=== PATIENT | female | born 1965 | race Caucasian/White ===

== ENCOUNTER 2018-05-19 06:11 | Day surgery (SDC) | END 2018-05-19 06:12 | disposition home or self-care (01) | CPT/HCPCS: 45378; J7120 ==

== ENCOUNTER 2021-10-23 15:17 | Observation (INO) | payer OTHER ==
[2021-10-23 15:35] LABS: BASOPHILS % (AUTO) 0.6 %; EOSINOPHILS # (AUTO) 0.1 10^3/uL (0.0-0.7); HGB - HEMOGLOBIN 13.9 g/dL (12.0-16.0); LYMPHOCYTES # (AUTO) 2.5 10^3/uL (1.5-3.5); LYMPHOCYTES % (AUTO) 35.1 %; MEAN CORPUSCULAR HEMOGLOBIN 29.4 pg (27.0-31.0); MEAN CORPUSCULAR HGB CONC 33.1 g/dL (32.0-36.0); MONOCYTES # (AUTO) 0.6 10^3/uL (0.0-1.0); MONOCYTES % (AUTO) 8.3 %; NEUTROPHILS # (AUTO) 3.7 10^3/uL (1.5-6.6); NEUTROPHILS % (AUTO) 53.6 %; PLT - PLATELET COUNT 284 10^3/uL (130-450); RED BLOOD COUNT 4.72 10^6/uL (4.20-5.40); RED CELL DISTRIBUTION WIDTH 12.3 % (12.0-15.0)
[2021-10-23] MEDS ORDERED: ONDANSETRON 4 MG/2 ML VIAL IVP STA (15:37)
[2021-10-23] MEDS ORDERED: PANTOPRAZOLE 40 MG VIAL IVP STA (15:37)
[2021-10-23] MEDS ORDERED: SUCRALFATE 1 GM/10 ML UDC PO STA (15:37)
[2021-10-23] MEDS ORDERED: HYDROmorphone 1 MG/ML CARPUJECT IVP STA ×2 (15:37→17:25)
[2021-10-23 15:48] LABS: ALBUMIN 4.9 g/dL (3.2-5.5); ALBUMIN/GLOBULIN RATIO 1.4 (1.0-2.2); BILIRUBIN,TOTAL 1.1 mg/dL (0.2-1.0); CALCIUM 9.8 mg/dL (8.5-10.3); CREATININE 0.8 mg/dL (0.4-1.0); POTASSIUM 3.4 mmol/L (3.5-5.0); TOTAL PROTEIN 8.4 g/dL (6.7-8.2)
--- NOTE | 2021-10-23 15:54 | ED Physician Documentation ---
PD HPI ABD PAIN - Stated complaint Stated Complaint: ABD PX - Chief complaint Chief Complaint: Abd Pain - History obtained from History obtained from: Patient - History of Present Illness Timing - details: Gradual onset Pain level max: 8 Pain level now: 8 Quality: Aching, Pain Location: Epigastric - Additional information Additional information: Patient is a 55-year-old female who presents with epigastric abdominal pain. She states that this has gotten worse today but has been going on intermittently for several days. She states that she asked her doctor to work her up for potential ulcer. Worse with eating and drinking. Nothing makes it better. Occasionally radiates to her mid back. She does not drink alcohol or smoke. She is on lisinopril. Review of Systems Ten Systems: 10 systems reviewed and negative Constitutional: denies: Fever, Chills Cardiac: denies: Chest pain / pressure Respiratory: denies: Cough GI: reports: Abdominal Pain, Nausea, Vomiting. 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 HEENT: Other - Present Medications Home Medications: Ambulatory Orders Medication Instructions Recorded Confirmed Atorvastatin [Lipitor] 20 mg PO DAILY 11/11/16 10/23/21 lisinopriL [Lisinopril] 5 mg PO DAILY 11/11/16 10/23/21 Metformin HCl [Metformin HCl ER] 2,000 mg PO DAILY 05/18/18 10/23/21 Aspirin 81 mg PO DAILY 05/19/18 10/23/21 Omeprazole 40 mg PO DAILY 10/23/21 10/23/21 - Allergies Allergies/Adverse Reactions: Allergies Allergy/AdvReac Type Severity Reaction Status Date / Time No Known Drug Allergies Allergy Verified 10/23/21 15:26 - Social History Does the pt smoke?: No Smoking Status: Never smoker Does the pt drink ETOH?: No Does the pt have substance abuse?: No - Immunizations Immunizations are current?: Yes PD ED PE NORMAL - Vitals Vital signs reviewed: Yes - General General: Alert and oriented X 3, No acute distress, Well developed/nourished - HEENT HEENT: PERRL, Moist mucous membranes - Neck Neck: Supple, no meningeal sign - Cardiac Cardiac: RRR, Strong equal pulses - Respiratory Respiratory: No respiratory distress, Clear bilaterally - Abdomen Abdomen: Soft, Non distended, Other (Tender to palpation epigastric and right upper quadrant. Positive Arango sign.) - Derm Derm: Warm and dry - Extremities Extremities: No edema - Neuro Neuro: Alert and oriented X 3 - Psych Psych: Normal mood, Normal affect Results - Vitals Vitals: Vital Signs - 24 hr 10/23/21 10/23/21 10/23/21 15:26 15:49 17:28 Temperature 36.8 C Heart Rate 80 79 69 Respiratory 20 16 18 Rate Blood Pressure 157/87 H 150/88 H 154/99 H O2 Saturation 100 100 100 Oxygen O2 Source Room air - EKG (time done) 1553 Rate: Rate (enter#) (72) Rhythm: NSR [place]: Normal Intervals: Normal [place] QRS: Normal Ischemia: Non specific changes - Labs Labs: Laboratory Tests 10/23/21 10/23/21 15:30 15:30 WBC 7.0 RBC 4.72 Hgb 13.9 Hct 42.0 MCV 89.0 MCH 29.4 MCHC 33.1 RDW 12.3 Plt Count 284 MPV 10.0 Neut # (Auto) 3.7 Lymph # (Auto) 2.5 [place] # (Auto) 0.6 Eos # (Auto) 0.1 Baso # (Auto) 0.0 Absolute Nucleated RBC 0.00 Nucleated RBC % 0.0 Sodium 139 Potassium 3.4 L Chloride 101 Carbon Dioxide 25 Anion Gap 13.0 BUN 16 Creatinine 0.8 Estimated GFR (MDRD) 74 L Glucose 166 H Calcium 9.8 Total Bilirubin 1.1 H AST 17 ALT 15 Alkaline Phosphatase 61 Total Protein 8.4 H Albumin 4.9 Globulin 3.5 Albumin/Globulin Ratio 1.4 Lipase 52 H - Rads (name of study) CT abdomen pelvis Radiology: Final report received, EMP read contemporaneously, See rad report RUQ US Radiology: Final report received, EMP read contemporaneously, See rad report PD MEDICAL DECISION MAKING - ED course Complexity details: reviewed results, re-evaluated patient, considered dif ferential, d/w patient, d/w bi consultant ED course: Patient with acute cholecystitis, likely emphysematous cholecystitis. Placed on Zosyn. Given pain medication and antiemetics. We will place in observation overnight to the determine readiness for OR tomorrow. Discussed the case with Dr. Hargrove, general surgery who accepts This document was made in part using voice recognition software. While efforts are made to proofread this document, sound alike and grammatical errors may occur. RUQ US: Cholelithiasis with gallbladder wall thickening and pericholecystic fluid consistent with acute cholecystitis. Note that CT performed today also demonstrated air in the gallbladder consistent with emphysematous cholecystitis. CT Abd/pelvis: 1. Cholelithiasis with gallbladder wall thickening. Air in the gallbladder is seen consistent with emphysematous cholecystitis. 2. Heterogenous lesion enhancing mass of the left kidney with adjacent surgical clips is smaller. Please correlate with history. 3. 3.5 x 3.0 cm left simple ovarian cyst. Departure - Departure Disposition: ED Place in Observation Clinical Impression: Acute cholecystitis Vomiting Qualifiers: Vomiting type: unspecified Vomiting Intractability: non-intractable Nausea presence: with nausea Qualified Code(s): R11.2 - Nausea with vomiting, unspecified Abdominal pain Qualifiers: Abdominal location: epigastric Qualified Code(s): R10.13 - Epigastric pain Condition: Stable
[2021-10-23] MEDS ORDERED: IOVERSOL 320 100 ML VIAL IVP ONE ×2 (16:09→17:05)
[2021-10-23] MEDS ORDERED: PIPERACILLIN/TAZOBACTAM 3.375 GM in SODIUM CHLORIDE 0.9% MINIBAG 100 ML IV STA (17:24)
[2021-10-23] MEDS ORDERED: PROMETHAZINE INJ 25 MG in SODIUM CHLORIDE 0.9% 50 ML IV STA (17:25)
[2021-10-23] MEDS ORDERED: SODIUM CHLORIDE 0.9% 1,000 ML IV STA (17:29)
[2021-10-23] MEDS ORDERED: ONDANSETRON 4 MG/2 ML VIAL IVP PRN (17:36)
[2021-10-23] MEDS ORDERED: SODIUM CHLORIDE FLUSH 0.9% 10 ML SYRINGE IVP PRN (17:36)
[2021-10-23] MEDS ORDERED: HYDROmorphone 1 MG/ML CARPUJECT IVP PRN (17:36)
[2021-10-23] MEDS ORDERED: ACETAMINOPHEN 1,000 MG/100 ML 100 ML IV PRN (17:36)
[2021-10-23] MEDS ORDERED: PROMETHAZINE 25 MG/1 ML VIAL ONE (17:39)
--- NOTE | 2021-10-23 17:54 | CT Report ---
PROCEDURE: Abdomen/Pelvis W INDICATIONS: upper abd pain, nausea CONTRAST: IV CONTRAST: Optiray 320 ml: 100 PO CONTRAST: *NO PO CONTRAST TECHNIQUE: After the administration of contrast, 5 mm thick sections acquired from the diaphragms to the sym physis. 5 mm thick coronal and sagittal reformats were acquired. For radiation dose reduction, the following was used: automated exposure control, adjustment of mA and/or kV according to patient size . COMPARISON: 11/11/2016 FINDINGS: Image quality: Excellent. ABDOMEN: Lung bases: Lung bases are clear. Heart size is normal. Solid organs: Liver and. Spleen are normal in size and enhancement. Gallbladder demonstrates layeri ng high density likely multiple small stones. There is also air within the gallbladder. Biliary syst em is non dilated. Pancreas enhances normally. No adrenal nodules. A left renal mass measuring 6.1 cm is smaller compared to prior CT in 2016 when it measured 8.3 x 7.8 cm. Some portions of the mass d emonstrate low density near 0 Hounsfield units. The mass demonstrates heterogenous enhancement. Peritoneum and bowel: Bowel loops demonstrate normal wall thickness and caliber. No free fluid or a ir. There is diverticulosis without evidence of diverticulitis. Nodes and vessels: No retroperitoneal or mesenteric adenopathy by size criteria. Aorta and inferior vena cava are normal in size. Miscellaneous: No ventral hernias. PELVIS: Genitourinary: Bladder wall thickness is normal. The left ovary measures 3.5 x 3.0 cm. Miscellaneous: No inguinal hernias or adenopathy. Bones: No suspicious bony lesions. No vertebral body compression fractures. IMPRESSION: 1. Cholelithiasis with gallbladder wall thickening. Air in the gallbladder is seen consistent with em physematous cholecystitis. 2. Heterogenous lesion enhancing mass of the left kidney with adjacent surgical clips is smaller. Ple ase correlate with history. 3. 3.5 x 3.0 cm left simple ovarian cyst. Reviewed by: Sabino Skinner on 10/23/2021 5:52 PM PST Approved by: Sabino Skinner on 10/23/2021 5:52 PM PST Station ID: [id number]
--- NOTE | 2021-10-23 17:59 | Ultrasound Report ---
PROCEDURE: Abdomen Limited INDICATIONS: RUQ abd pain TECHNIQUE: Real-time focused scanning was performed of the abdomen, with image documentation. COMPARISON: CT from today's date. FINDINGS: Liver: The liver demonstrates hepatic steatosis and is mildly enlarged measuring 17.8 cm. Gallbladder: Gallbladder wall is mildly thickened measuring 2.2 mm. There is gallbladder sludge. Mult iple stones are also seen. Note that CT from today's date demonstrated air layering in the gallbladde r consistent with emphysematous cholecystitis. Pericholecystic fluid is noted. Biliary tree: The common bile duct measures 5.3 mm. Pancreas: The head and body of the pancreas have a normal appearance. The tail of the pancreas is obs cured by overlying bowel gas. IMPRESSION: Cholelithiasis with gallbladder wall thickening and pericholecystic fluid consistent with acute cholecystitis. Note that CT performed today also demonstrated air in the gallbladder consisten t with emphysematous cholecystitis. Reviewed by: Sabino Skinner on 10/23/2021 5:58 PM PST Approved by: Sabino Skinner on 10/23/2021 5:58 PM PST Station ID: [id number]
[2021-10-23 18:01] LABS: BILIRUBIN,URINE NEGATIVE (NEGATIVE); GLUCOSE, URINE (UA) NEGATIVE (NEGATIVE); KETONES,URINE (UA) NEGATIVE (NEGATIVE); LEUKOCYTE ESTERASE, URINE NEGATIVE (NEGATIVE); NITRITE,URINE NEGATIVE (NEGATIVE); OCCULT BLOOD,URINE TRACE-INTA (NEGATIVE); PROTEIN,URINE NEGATIVE (NEGATIVE); UROBILINOGEN,URINE 0.2 (NORMAL) E.U./dL (NORMAL)
[2021-10-23 18:05] LABS: CLARITY,URINE CLEAR (CLEAR)
[2021-10-23] MEDS: SODIUM CHLORIDE 0.9% 1,000 ML IV SCH (18:59)
[2021-10-23 19:21] LABS: B. PARAPERTUSSIS- RESP PCR PAN NOT DETECTED; B. PERTUSSIS- RESP PCR PANEL NOT DETECTED; C. PNEUMONIAE- RESP PCR PANEL NOT DETECTED; CORONAVIRUS 229E-RESP PCR NOT DETECTED; CORONAVIRUS HKU1-RESP PCR NOT DETECTED; CORONAVIRUS NL63-RESP PCR NOT DETECTED; CORONAVIRUS OC43-RESP PCR NOT DETECTED; HUMAN METAPNEUMOVIRUS NOT DETECTED; INFLUENZA A- RESP PCR PANEL NOT DETECTED; INFLUENZA B - RESP PCR PANEL NOT DETECTED; M. PNEUMONIAE- RESP PCR PANEL NOT DETECTED; PARAINFLUENZA VIRUS 1 NOT DETECTED; PARAINFLUENZA VIRUS 2 NOT DETECTED; PARAINFLUENZA VIRUS 3 NOT DETECTED; PARAINFLUENZA VIRUS 4 NOT DETECTED; RHINOVIRUS/ENTEROVIRUS NOT DETECTED; RSV- RESP PCR PANEL NOT DETECTED; SARS-CoV-2 -RESP PCR PANEL NOT DETECTED
[2021-10-23] MEDS: INSULIN ASPART 300 UNIT/3 ML PEN SUBQ SCH (22:15)
[2021-10-23] MEDS: PIPERACILLIN/TAZOBACTAM 3.375 GM in SODIUM CHLORIDE 0.9% MINIBAG 100 ML IV SCH (23:04)
[2021-10-24] MEDS: SODIUM CHLORIDE 0.9% 1,000 ML IV SCH ×2 (05:02→20:00)
[2021-10-24] MEDS: SODIUM CHLORIDE FLUSH 0.9% 10 ML SYRINGE IVP SCH ×3 (05:07→15:57)
[2021-10-24 06:23] LABS: BASOPHILS % (AUTO) 0.3 %; EOSINOPHILS % (AUTO) 0.8 %; HCT - HEMATOCRIT 40.7 % (37.0-47.0); HGB - HEMOGLOBIN 13.4 g/dL (12.0-16.0); LYMPHOCYTES % (AUTO) 7.4 %; MEAN CORPUSCULAR HEMOGLOBIN 29.7 pg (27.0-31.0); MEAN CORPUSCULAR HGB CONC 32.9 g/dL (32.0-36.0); MEAN CORPUSCULAR VOLUME 90.2 fL (81.0-99.0); MEAN PLATELET VOLUME 10.7 fL (7.9-10.8); MONOCYTES % (AUTO) 6.3 %; NEUTROPHILS % (AUTO) 84.6 %; PLT - PLATELET COUNT 221 10^3/uL (130-450); RED BLOOD COUNT 4.51 10^6/uL (4.20-5.40); RED CELL DISTRIBUTION WIDTH 12.3 % (12.0-15.0); WHITE BLOOD COUNT 10.3 x10^3/uL (4.8-10.8)
[2021-10-24 06:27] LABS: ABNORMAL LYMPHS % (MANUAL) 0 %
[2021-10-24 06:30] LABS: ALBUMIN/GLOBULIN RATIO 1.3 (1.0-2.2); CALCIUM 8.9 mg/dL (8.5-10.3); CREATININE 0.7 mg/dL (0.4-1.0); POTASSIUM 3.5 mmol/L (3.5-5.0)
[2021-10-24 06:42] LABS: BAND NEUTROPHILS % (MANUAL) 8 %; LYMPHOCYTES # (MANUAL) 1.4 10^3/uL (1.5-3.5); LYMPHOCYTES % (MANUAL) 14 %; MONOCYTES # (MANUAL) 0.6 10^3/uL (0.0-1.0); NEUTROPHILS # (MANUAL) 8.2 10^3/uL (1.5-6.6)
[2021-10-24 06:43] LABS: DIFFERENTIAL COMMENT MANUAL DIFFERENTIAL; PLATELET ESTIMATE, MANUAL NORMAL (130-450,000) (NORMAL); PLATELET MORPHOLOGY NORMAL APPEARANCE (NORMAL); RBC MORPHOLOGY (MULTIPLE) NORMAL APPEARANCE (NORMAL); WBC MORPHOLOGY (MULTIPLE) NORMAL APPEARANCE (NORMAL)
[2021-10-24] MEDS: PIPERACILLIN/TAZOBACTAM 3.375 GM in SODIUM CHLORIDE 0.9% MINIBAG 100 ML IV SCH ×3 (06:59→22:29)
[2021-10-24] MEDS: INSULIN ASPART 300 UNIT/3 ML PEN SUBQ SCH ×2 (07:35→12:03)
--- NOTE | 2021-10-24 07:49 | ANESTHESIA ---
Pre-Anesthesia VS, & Labs - Diagnosis Acute Cholecystitis - Procedure Lap Angela Vital Signs: Temp Pulse Resp BP Pulse Ox 37.5 C 98 20 135/67 H 94 10/24/21 05:48 10/24/21 05:48 10/24/21 05:48 10/24/21 05:48 10/24/21 05:48 Height: 5 ft 3 in Weight (kg): 81 kg Body Mass Index: 31.6 BMI Classification: Obese - NPO >8 hours - Is Patient ?: No - Lab Results Current Lab Results: Laboratory Tests 10/24/21 07:34: POC Whole Bld Glucose 192 H 10/24/21 05:06: Sodium 133 L, Potassium 3.5, Chloride 100 L, Carbon Dioxide 21, Anion Gap 12.0, BUN 12, Creatinine 0.7, Estimated GFR (MDRD) 86 L, Glucose 197 H , Calcium 8.9, Total Bilirubin 1.0, AST 23, ALT 20, Alkaline Phosphatase 53, Total Protein 7.0, Albumin 4.0, Globulin 3.0, Albumin/Globulin Ratio 1.3 10/24/21 05:06: WBC 10.3, RBC 4.51, Hgb 13.4, Hct 40.7, MCV 90.2, MCH 29.7, MCHC 32.9, RDW 12.3, Plt Count 221, MPV 10.7, Neut # (Auto) Not Reportable, Lymph # (Auto) Not Reportable, [place] # (Auto) Not Reportable, Eos # (Auto) Not R eportable, Baso # (Auto) Not Reportable, Absolute Nucleated RBC Not Reportable, Total Counted 100, Band Neuts % (Manual) 8, Abnorm Lymph % (Manual) 0, Nucleated RBC % Not Reportable, Neutrophils # (Manual) 8.2 H, Lymphocytes # (Manual) 1.4 L , Monocytes # (Manual) 0.6, Eosinophils # (Manual) 0.0, Basophils # (Manual) 0.0, Differential Comment MANUAL DIFFERENTIAL, WBC Morphology NORMAL APPEARANCE, Platelet Estimate NORMAL (130-450,000), Platelet Morphology NORMAL APPEARANCE, RBC Morph Micro Appear NORMAL APPEARANCE 10/23/21 21:41: POC Whole Bld Glucose 156 H 10/23/21 18:47: POC Whole Bld Glucose 143 H 10/23/21 15:30: Sodium 139, Potassium 3.4 L, Chloride 101, Carbon Dioxide 25, Anion Gap 13.0, BUN 16, Creatinine 0.8, Estimated GFR (MDRD) 74 L, Glucose 166 H , Calcium 9.8, Total Bilirubin 1.1 H, AST 17, ALT 15, Alkaline Phosphatase 61, Total Protein 8.4 H, Albumin 4.9, Globulin 3.5, Albumin/Globulin Ratio 1.4, Lipase 52 H 10/23/21 15:30: WBC 7.0, RBC 4.72, Hgb 13.9, Hct 42.0, MCV 89.0, MCH 29.4, MCHC 33.1, RDW 12.3, Plt Count 284, MPV 10.0, Neut # (Auto) 3.7, Lymph # (Auto) 2.5, [place] # (Auto) 0.6, Eos # (Auto) 0.1, Baso # (Auto) 0.0, Absolute Nucleated RBC 0.00, Nucleated RBC % 0.0 Fish Bones: 10/24/21 05:06 10/24/21 05:06 Home Medications and Allergies Home Medications: Ambulatory Orders Omeprazole 40 mg PO DAILY 10/23/21 Active Medications Hydromorphone HCl (Hydromorphone 1 Mg/Ml Carpuject) 1 mg IVP Q1H PRN PRN Reason: PAIN Last Admin: 10/24/21 07:25 Dose: 1 mg Documented by: Sodium Chloride (Normal Saline 0.9%) 1,000 mls @ 100 mls/hr IV .Q10H JAZMIN Last Admin: 10/24/21 05:02 Dose: 100 mls/hr Documented by: Piperacillin Sod/Tazobactam (Sod 3.375 gm/ Sodium Chloride) 100 mls @ 25 mls/hr IV Q8H JAZMIN Last Admin: 10/24/21 06:59 Dose: 25 mls/hr Documented by: Acetaminophen (Ofirmev) 100 mls @ 400 mls/hr IV Q6HR PRN PRN Reason: PAIN Stop: 10/25/21 17:35 Insulin Aspart (Insulin Aspart 300 Unit/3 Ml Pen) 1 - 9 unit SUBQ 0800,1200,1 700,2100 JAZMIN; Protocol Last Admin: 10/24/21 07:35 Dose: 3 unit Documented by: Ondansetron HCl (Ondansetron 4 Mg/2 Ml Vial) 4 mg IVP Q6H PRN PRN Reason: Nausea / Vomiting Last Admin: 10/24/21 07:31 Dose: 4 mg Documented by: Sodium Chloride (Sodium Chloride Flush 0.9% 10 Ml Syringe) 10 ml IVP 0100,0900,1700 JAZMIN Last Admin: 10/24/21 07:34 Dose: 10 ml Documented by: Sodium Chloride (Sodium Chloride Flush 0.9% 10 Ml Syringe) 10 ml IVP PRN PRN PRN Reason: NEEDED PER PROVIDER ORDERS Atorvastatin [Lipitor] 20 mg PO DAILY 11/11/16 lisinopriL [Lisinopril] 5 mg PO DAILY 11/11/16 Metformin HCl [Metformin HCl ER] 2,000 mg PO DAILY 05/18/18 Aspirin 81 mg PO DAILY 05/19/18 Omeprazole 40 mg PO DAILY 10/23/21 Allergies/Adverse Reactions: Allergies Allergy/AdvReac Type Severity Reaction Status Date / Time No Known Drug Allergies Allergy Verified 10/23/21 15:26 Anes History & Medical History - Anesthetic History Anesthesia Complications: reports: No previous complications - Medical History Cardiovascular: reports: High cholesterol Pulmonary: reports: None Gastrointestinal: reports: None Urinary: reports: Kidney stones, Other (renal cysts) Neuro: reports: None Musculoskeletal: reports: Osteoarthritis Endocrine/Autoimmune: reports: Type 2 diabetes Blood Disorders: reports: None Skin: reports: Rosacea Smoking Status: Never smoker Psychosocial: reports: No issues indicated History of Cancer?: No - Surgical History Eyes Ears Nose Throat (EENT): reports: Other Gynecologic: reports: section Exam General: Alert, Oriented x3, Cooperative, No acute distress Dental: Other (broken top left molar) Mouth Openin Fingerbreadth Neck Mobility: Normal Mallampati classification: III Thyromental Distance: 4-6 cm Mental/Cognitive Status: Alert/Oriented X3, Normal for patient Plan Anesthesia Type: General Consent for Procedure(s) Verified and Reviewed: Yes Code Status: Attempt Resuscitation ASA classification: 2-Mild systemic disease Is this case an emergency?: Yes
[2021-10-24] MEDS ORDERED: fentaNYL 100 MCG/2 ML VIAL IVP PRN (11:00)
[2021-10-24] MEDS ORDERED: ATROPINE ABBOJECT 1 MG/10 ML SYRINGE IVP PRN (11:00)
[2021-10-24] MEDS ORDERED: MORPHINE 2 MG/ML CARPUJECT IVP PRN (11:00)
[2021-10-24] MEDS ORDERED: NALOXONE 0.4 MG/ML VIAL IVP PRN (11:00)
[2021-10-24] MEDS ORDERED: HYDROmorphone 0.5 MG/0.5 ML SYRINGE IVP PRN ×2 (11:00→14:12)
[2021-10-24] MEDS ORDERED: ONDANSETRON 4 MG/2 ML VIAL IVP PRN ×2 (11:00→14:06)
[2021-10-24] MEDS ORDERED: LACTATED RINGERS 1,000 ML IV SCH (11:00)
[2021-10-24] MEDS ORDERED: BUPIVACAINE 0.5% PF 10 ML VIAL ONE (11:08)
[2021-10-24] MEDS ORDERED: IOTHALAMATE MEGLUMINE 50 ML VIAL ONE (11:08)
[2021-10-24] MEDS ORDERED: MIDAZOLAM 2 MG/2 ML VIAL ONE (11:14)
[2021-10-24] MEDS ORDERED: fentaNYL 100 MCG/2 ML VIAL ONE ×2 (11:14→12:52)
[2021-10-24] MEDS ORDERED: ROCURONIUM 50 MG/5 ML VIAL ONE ×2 (11:14→12:57)
[2021-10-24] MEDS ORDERED: LIDOCAINE-MPF 2% 5 ML VIAL ONE (11:14)
[2021-10-24] MEDS ORDERED: PROPOFOL 200 MG/20 ML VIAL IVP ONE (11:14)
[2021-10-24] MEDS ORDERED: SEVOFLURANE 250 ML LIQUID INH ONE (11:22)
[2021-10-24] MEDS ORDERED: BUPIVACAINE 0.25% PF 10 ML VIAL ONE (11:30)
--- NOTE | 2021-10-24 12:03 | HISTORY & PHYSICAL EXAMINATION ---
Chief Complaint - Chief Complaint Chief Complaint: epigastric pain History of Present Illness - Admitted From Admitted From:: ED - History Obtained From Records Reviewed: yes History obtained from: pt Exam Limitations: none - History of Present Illness HPI Comment/Other: History waxing and waning epigastric pain for a few months. Severe epigastric pain yesterday. Not improving. Work up cholecystitis with small stones and normal lfts. 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 HEENT: reports: Other Meds/Allgy - Home Medications Home Medications: Ambulatory Orders Medication Instructions Recorded Confirmed Atorvastatin [Lipitor] 20 mg PO DAILY 11/11/16 10/23/21 lisinopriL [Lisinopril] 5 mg PO DAILY 11/11/16 10/23/21 Metformin HCl [Metformin HCl ER] 2,000 mg PO DAILY 05/18/18 10/23/21 Aspirin 81 mg PO DAILY 05/19/18 10/23/21 Omeprazole 40 mg PO DAILY 10/23/21 10/23/21 - Allergies Allergies/Adverse Reactions: Allergies Allergy/AdvReac Type Severity Reaction Status Date / Time No Known Drug Allergies Allergy Verified 10/23/21 15:26 Review of Systems - Other Findings Other Findings: 10 pt ros as above otherwise unremarkable Exam - Vital Signs Reviewed Vital Signs: Yes Vital Signs: Vital Signs x48h Temp Pulse Resp BP Pulse Ox 10/24/21 09:00 37 C 89 20 140/51 H 96 10/24/21 05:48 37.5 C 98 20 135/67 H 94 - Physical Exam General Appearance: positive: No acute distress, Alert Eyes Bilateral: positive: PERRL, EOMI, No scleral icterus ENT: positive: No signs of dehydration Neck: positive: No JVD Respiratory: positive: No respiratory distress, Breath sounds nml Cardiovascular: positive: Regular rate & rhythm Abdomen: positive: No distention, Tenderness, Other (ruq tenderness) Neurologic/Psychiatric: positive: Oriented x3 Conclusion/Plan - Problem List (1) Acute cholecystitis Conclusion/Plan: plan lap jeane. parq held and consent obtained. - Lab Results Fish Bones: 10/24/21 05:06 10/24/21 05:06
[2021-10-24] MEDS ORDERED: BUPIVACAINE 0.25% PF 30 ML VIAL SUBQ ONE (13:01)
[2021-10-24] MEDS ORDERED: ONDANSETRON 4 MG/2 ML VIAL ONE (13:19)
[2021-10-24] MEDS ORDERED: SUGAMMADEX 200 MG/2 ML VIAL IVP ONE (13:21)
[2021-10-24] MEDS ORDERED: HYDROmorphone 1 MG/ML CARPUJECT ONE (13:43)
[2021-10-24] MEDS ORDERED: LACTATED RINGERS 1,000 ML IV ONE (13:52)
--- NOTE | 2021-10-24 14:17 | OPERATIVE REPORT ---
Operative Report - General Admit Date: 10/23/21 Procedure Date: 10/24/21 Planned Procedure: laparoscopic cholecystectomy Pre-Op Diagnosis: cholecystitis Procedure Performed: laparoscopic cholecystectomy Post Op Diagnosis: gangrenous cholecystitis - Procedure Note Primary Surgeon: neptali rosario Anesthesia Technique: General ET tube, Local Pathology: gb Estimated Blood Loss (mL): 20 Drain/Tube Type: Amish Medrano drain Indications: cholecystitis Findings: as above Complications: none - Other Other Information/Narrative: The patient was properly identified, brought to the operating room and placed in supine position. Sequential compression devices were placed. General endotracheal anesthesia was induced. The patient was prepped and draped in a sterile fashion and given preoperative antibiotics. Local anesthetic was given to incision areas. An incision was made in the periumbilical area. Dissection proceeded down to fascia. The fascia was incised lifted upwards and abdomen entered with a Veress needle. CO2 was insufflated to a pressure of 15. An 11 mm trocar followed by a 30 degree scope was placed. There was no evidence of injury from Veress needle or trocar placement. Under direct vision 2 5 mm trochars were placed in the right upper quadrant and an 11 mm trocar was placed in the epigastrium. The gallbladder was tense and gangrenous. Diffuse edema was present including the ervin area. The gallbladder was aspirated to allow retraction. Body of the gallbladder was retracted anterior. Lateral rosalina chments were partially taken down further mobilizing the gallbladder more anterior and away from the duodenum. The infundibulum of the gallbladder was then retracted right lateral and caudad. With minimal use of cautery a large bare cystic plate area or window was carefully created. The cystic duct was inspected from right lateral and left lateral positions. [] The cystic duct was then clipped at the gallbladder and 3 times slightly proximal and sharply divided. The cystic artery was clipped at the gallbladder and then 2 times slightly proximal and sharply divided. The gallbladder was mobilized off from the bed of the liver with hook cautery. The gallbladder was placed in Endo Catch bag and brought out through the epigastric trocar site. A 10 flat jean marie was placed and secured with a 3 O nylon. Hemostasis was assured. Trochars were removed under direct vision. Fascia at the larger trocar sites was closed with [id number]-myeip are running 0 Vicryl suture. Subcutaneous tissue was irrigated and skin closed with interrupted 4-0 Monocryl. Dressings were applied. Patient tolerated the procedure well was awakened and brought to recovery in good condition.
--- NOTE | 2021-10-24 14:22 | ANESTHESIA POST OP EVALUATION ---
Anesthesia Post Eval - Post Anesthesia Eval Vitals: Last Vital Signs Temp 36.9 C 10/24/21 14:05 Pulse 105 H 10/24/21 14:16 Resp 20 10/24/21 14:16 BP 116/74 10/24/21 14:16 Pulse Ox 100 10/24/21 14:16 CV Function Including HR & BP: Stable Pain Control: Satisfactory Nausea & Vomiting: Negative Mental Status: Baseline Respiratory Status: Airway Patent Hydration Status: Satisfactory Anesthesia Complications: None
[2021-10-24] MEDS ORDERED: PIPERACILLIN/TAZOBACTAM 3.375 GM in SODIUM CHLORIDE 0.9% MINIBAG 100 ML IV SCH (15:00)
[2021-10-24] MEDS: INSULIN REGULAR HUMAN 300 UNIT/3 ML VIAL SUBQ SCH (18:01)
[2021-10-24] MEDS: HYDROcod/ACETAM 5/325 MG TABLET PO PRN (18:06)
[2021-10-24] MEDS ORDERED: ATORVASTATIN 40 MG TABLET PO SCH (21:00)
[2021-10-25] MEDS: INSULIN REGULAR HUMAN 300 UNIT/3 ML VIAL SUBQ SCH ×2 (01:59→06:09)
[2021-10-25] MEDS: SODIUM CHLORIDE FLUSH 0.9% 10 ML SYRINGE IVP SCH ×2 (03:13→11:24)
[2021-10-25] MEDS: SODIUM CHLORIDE 0.9% 1,000 ML IV SCH (06:21)
[2021-10-25] MEDS: PIPERACILLIN/TAZOBACTAM 3.375 GM in SODIUM CHLORIDE 0.9% MINIBAG 100 ML IV SCH (06:23)
[2021-10-25] MEDS: HYDROcod/ACETAM 5/325 MG TABLET PO PRN (06:37)
[2021-10-25] MEDS ORDERED: PANTOPRAZOLE 40 MG TABLET PO SCH (07:00)
[2021-10-25 09:15] VITALS: BP 116/72
[2021-10-25] MEDS ORDERED: metFORMIN 850 MG TABLET PO SCH (17:00)
--- NOTE | 2021-10-30 13:21 | Discharge Plan ---
Discharge Plan Problem Reviewed?: Yes Disposition: Home, Self Care Condition: Good Prescriptions: HYDROcod/ACETAM 5/325 [[place] 5/325] 1 each PO Q6H PRN #30 tablet PRN Reason: Pain Ondansetron Odt [Zofran Odt] 4 mg PO Q6H PRN #15 tablet PRN Reason: Nausea / Vomiting Diet: Regular (light for several days low fat for 2 weeks) Activity Restrictions: No Restrictions Shower Restrictions: No Driving Restrictions: No Instruction Topics: Tube [facility] [place] Drainage Care Health Concerns: cholecystitis and diabetes Plan of Treatment: lap jeane with drain placement 10/24/2021 and antibiotics Care Goals: doing well after surgery Assessment: doing well after surgery Additional Instructions or Follow Up instructions: follow up surgery in a few days please call [phone] No Smoking: If you smoke, Please STOP! Call for help. Follow-up with: ELHAM CORBIN MD [Primary Care Provider] - Dillon Salinas MD [Provider Admit Priv/Credential] -
--- NOTE | 2021-10-30 13:37 | DISCHARGE SUMMARY ---
"Discharge Summary Admit Date: 11/22/21 Discharge Date: 11/24/21 Discharging Provider: neptali rosario md Code Status: Attempt Resuscitation Condition at Discharge: Good Discharge Disposition: 01 Home, Self Care Discharge Facility Name: [facility] - DIAGNOSES Admission Diagnoses: cholecystitis Discharge Diagnoses with Status of Each Condition: cholecystitis. home in good condition after treatment with antibiotics and surgery - HPI History of Present Illness: acute onset epigastric pain. - CONSULTS | PROCEDURES Procedures: lap jeane 10/24/2021 - HOSPITAL COURSE Hospital Course: much improved after surgery. home in good condition - ALLERGIES Allergies/Adverse Reactions: Allergies Allergy/AdvReac Type Severity Reaction Status Date / Time No Known Drug Allergies Allergy Verified 10/27/21 23:23 - MEDICATIONS Home Medications: Ambulatory Orders Medication Instructions Recorded Confirmed Atorvastatin [Lipitor] 20 mg PO DAILY 11/11/16 10/23/21 lisinopriL [Lisinopril] 5 mg PO DAILY 11/11/16 10/23/21 Metformin HCl [Metformin HCl ER] 2,000 mg PO DAILY 05/18/18 10/23/21 Aspirin 81 mg PO DAILY 05/19/18 10/23/21 Omeprazole 40 mg PO DAILY 10/23/21 10/23/21 HYDROcod/ACETAM 5/325 [[place] 5/325] 1 each PO Q6H PRN #30 tablet 10/24/21 Ondansetron Odt [Zofran Odt] 4 mg PO Q6H PRN #15 tablet 10/24/21 - LABS Result Diagrams: 10/24/21 05:06 10/24/21 05:06 - FOLLOW UP Follow Up: surgery please call to make an appointment [phone]"
== END 2021-10-25 09:20 | disposition home or self-care (01) ==
LOC: ED 15:17 → MS2 17:36
PROVIDERS: ADMIT Surgery; ATTEND Surgery
PROC: 0FT44ZZ Resection of Gallbladder, Percutaneous Endoscopic Approach (ICD-10-PCS; principal; 2021-10-23)
DX: K80.00 Calculus of gallbladder with acute cholecystitis without obstruction (principal); K82.A1 Gangrene of gallbladder in cholecystitis; E78.00 Pure hypercholesterolemia, unspecified; E11.9 Type 2 diabetes mellitus without complications; E66.9 Obesity, unspecified; Z68.31 Body mass index [BMI] 31.0-31.9, adult; Z20.822 Contact with and (suspected) exposure to COVID-19; Z79.84 Long term (current) use of oral hypoglycemic drugs; Z79.82 Long term (current) use of aspirin; Z79.899 Other long term (current) drug therapy
CPT/HCPCS: 0202U; 36415; 47562; 74177; 76705; 80053; 81003; 83690; 85025; 93005; 96365; 96366; 96367; 96368; 96375; 96376; 99284; 99285; A9270; G0378; J1170; J1815; J3490; J7040; J7120; Q9967; 81001; 87086

== ENCOUNTER 2021-10-27 23:18 | Emergency (ER) | payer OTHER ==
[2021-10-27] MEDS ORDERED: ONDANSETRON 4 MG/2 ML VIAL IVP STA (23:30)
[2021-10-27] MEDS ORDERED: SODIUM CHLORIDE 0.9% 1,000 ML IV STA (23:30)
[2021-10-27 23:49] LABS: BASOPHILS % (AUTO) 0.4 %; EOSINOPHILS # (AUTO) 0.1 10^3/uL (0.0-0.7); EOSINOPHILS % (AUTO) 3.1 %; HCT - HEMATOCRIT 35.3 % (37.0-47.0); HGB - HEMOGLOBIN 11.6 g/dL (12.0-16.0); LYMPHOCYTES # (AUTO) 1.5 10^3/uL (1.5-3.5); LYMPHOCYTES % (AUTO) 32.3 %; MEAN CORPUSCULAR HEMOGLOBIN 29.6 pg (27.0-31.0); MEAN CORPUSCULAR HGB CONC 32.9 g/dL (32.0-36.0); MEAN CORPUSCULAR VOLUME 90.1 fL (81.0-99.0); MEAN PLATELET VOLUME 9.8 fL (7.9-10.8); MONOCYTES # (AUTO) 0.4 10^3/uL (0.0-1.0); MONOCYTES % (AUTO) 9.2 %; NEUTROPHILS # (AUTO) 2.5 10^3/uL (1.5-6.6); NEUTROPHILS % (AUTO) 54.3 %; PLT - PLATELET COUNT 280 10^3/uL (130-450); RED BLOOD COUNT 3.92 10^6/uL (4.20-5.40); RED CELL DISTRIBUTION WIDTH 12.7 % (12.0-15.0); WHITE BLOOD COUNT 4.6 x10^3/uL (4.8-10.8)
[2021-10-28 00:04] LABS: ALBUMIN 3.6 g/dL (3.2-5.5); ALBUMIN/GLOBULIN RATIO 1.1 (1.0-2.2); BILIRUBIN,TOTAL 1.9 mg/dL (0.2-1.0); CALCIUM 8.6 mg/dL (8.5-10.3); CREATININE 0.8 mg/dL (0.4-1.0); POTASSIUM 2.9 mmol/L (3.5-5.0)
[2021-10-28] MEDS ORDERED: POTASSIUM CHLORIDE 20 MEQ TABLET PO STA (00:11)
[2021-10-28] MEDS ORDERED: IOVERSOL 320 100 ML VIAL IVP ONE ×2 (00:24→00:45)
--- NOTE | 2021-10-28 01:02 | CT Report ---
PROCEDURE: Abdomen/Pelvis W INDICATIONS: post-op pain, newly elevated LFTs CONTRAST: IV CONTRAST: Optiray 320 ml: 100 PO CONTRAST: *NO PO CONTRAST TECHNIQUE: After the administration of IV contrast, 5 mm thick sections acquired from the diaphragms to the symp hysis. 5 mm thick coronal and sagittal reformats were acquired. For radiation dose reduction, the f ollowing was used: automated exposure control, adjustment of mA and/or kV according to patient size. COMPARISON: Ultrasound of abdomen dated 10/23/[address] of abdomen and pelvis dated 10/23/2021. FINDINGS: Image quality: Excellent. ABDOMEN: Lung bases: Trace bilateral pleural effusion and bibasilar atelectasis is seen. Heart size is normal. Solid organs: Liver and spleen are normal in size and enhancement. Patient is status post interval c holecystectomy with surgical drain seen in gallbladder fossa. No fluid collection is noted with a gal lbladder fossa. Biliary system is non dilated. Pancreas enhances normally. No adrenal nodules. Kid neys demonstrate normal size and enhancement, without hydronephrosis. 5 x 5.1 x 7.1 cm hypodense les ion involving anterior cortex of upper to midpole left kidney is again seen with peripheral surgical clips not significantly changed from prior study. Peritoneum and bowel: Bowel loops demonstrate normal wall thickness and caliber. No abdominal free f luid. A few tiny pockets of free air are seen in nondependent portion of peritoneal space likely repr esent postsurgical changes. Mild sigmoid diverticulosis is seen, no CT evidence of acute diverticulit is. No abscess collection. Nodes and vessels: No retroperitoneal or mesenteric adenopathy by size criteria. Aorta and inferior vena cava are normal in size. Miscellaneous: No ventral hernias. PELVIS: Genitourinary: Bladder wall thickness is normal. Miscellaneous: No inguinal hernias or adenopathy. 3.7 x 2.9 cm left ovarian cyst is again seen and unchanged. Bones: No suspicious bony lesions. No vertebral body compression fractures. IMPRESSION: 1. Patient is status post cholecystectomy with postsurgical changes and a surgical drain present. No fluid collection is seen in gallbladder fossa. 2. No abscess collection. No peritoneal free fluid. A few tiny pockets of free air seen in dependent portion of peritoneal space most consistent with iatrogenic air from recent surgery. 3. No bowel obstruction. No abnormal bowel wall thickening. Sigmoid diverticulosis without evidence o f acute diverticulitis. 4. Left renal mass not significantly changed in size and appearance from recent study. Clinical corre lation is recommended. 5. Stable appearing left ovarian cyst. Reviewed by: Brock Santoyo MD on 10/28/2021 1:00 AM [facility] Approved by: Brock Santoyo MD on 10/28/2021 1:00 AM [facility] Station ID: [id number]
--- NOTE | 2021-10-28 01:11 | ED Physician Documentation ---
PD HPI ABD PAIN - Stated complaint Stated Complaint: ABD PX - Chief complaint Chief Complaint: Abd Pain - History obtained from History obtained from: Patient - Additional information Additional information: Patient comes emergency department chief complaint of pain around right upper quadrant drain site and constipation after undergoing laparoscopic cholecystectomy for cholecystitis 3 days ago. The patient states that she feels better she takes her Vicodin, but that she does not like to be on medications unless she "absolutely has to", so she Did not take her Vicodin this morning. Patient states that by the end of the day, after 2 days of being quite active and taking care of her many cats, the patient was having quite a bit of pain in the right upper quadrant, mainly at the site of the drain. She states that she did take a Vicodin this evening and held it down for a while but ended up vomiting it up sometime later. However, she states she feels significantly better than she did earlier and thinks she may have held some of the Vicodin. Patient denies any direct trauma to the area. She states the drainage from her drain has been mainly clear yellow fluid. No fresh blood that is new. No fevers or chills. Patient states she has not had much to eat since her surgery, but is concerned because she took MiraLAX and still has not had a bowel movement since before the surgery. Patient is not nauseated. She denies any other complaints at this time. Patient does note that the amount of fluid coming out of her DU drain has been steadily decreasing over the last few days. Review of Systems Ten Systems: 10 systems reviewed and negative Constitutional: reports: Reviewed and negative Eyes: reports: Reviewed and negative Ears: reports: Reviewed and negative Nose: reports: Reviewed and negative Throat: reports: Reviewed and negative Cardiac: reports: Reviewed and negative Respiratory: reports: Reviewed and negative GI: reports: Abdominal Pain, Constipation : reports: Reviewed and negative Skin: reports: Reviewed and negative Musculoskeletal: reports: Reviewed and negative Neurologic: reports: Reviewed and negative Psychiatric: reports: Reviewed and negative Endocrine: reports: Reviewed and negative Immunocompromised: reports: Reviewed and negative PD PAST MEDICAL HISTORY - Past Medical History Past Medical History: Yes Cardiovascular: High cholesterol Respiratory: None Neuro: None Endocrine/Autoimmune: Type 2 diabetes GI: None : Kidney stones, Other HEENT: None Musculoskeletal: Osteoarthritis Derm: Rosacea - Past Surgical History Past Surgical History: Yes 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 HEENT: Other - Present Medications Home Medications: Ambulatory Orders Medication Instructions Recorded Confirmed Atorvastatin [Lipitor] 20 mg PO DAILY 11/11/16 10/23/21 lisinopriL [Lisinopril] 5 mg PO DAILY 11/11/16 10/23/21 Metformin HCl [Metformin HCl ER] 2,000 mg PO DAILY 05/18/18 10/23/21 Aspirin 81 mg PO DAILY 05/19/18 10/23/21 Omeprazole 40 mg PO DAILY 10/23/21 10/23/21 HYDROcod/ACETAM 5/325 [[place] 5/325] 1 each PO Q6H PRN #30 tablet 10/24/21 Ondansetron Odt [Zofran Odt] 4 mg PO Q6H PRN #15 tablet 10/24/21 - Allergies Allergies/Adverse Reactions: Allergies Allergy/AdvReac Type Severity Reaction Status Date / Time No Known Drug Allergies Allergy Verified 10/27/21 23:23 - Social History Does the pt smoke?: No Smoking Status: Never smoker Does the pt drink ETOH?: No Does the pt have substance abuse?: No - Immunizations Immunizations are current?: Yes PD ED PE NORMAL - Vitals Vital signs reviewed: Yes - General General: Alert and oriented X 3, No acute distress, Well developed/nourished - HEENT HEENT: Atraumatic, PERRL, EOMI, Moist mucous membranes - Neck Neck: Supple, no meningeal sign - Cardiac Cardiac: RRR, No murmur - Respiratory Respiratory: No respiratory distress, Clear bilaterally - Abdomen Abdomen: Soft, Other (Mildly obese abdomen with several small incision sites in right upper quadrant and umbilical area, consistent with recent laparoscopic cholecystectomy. Dressings are clean dry and intact, and no erythema or induration. DU drain Site intact; yellow, translucent fluid in the bulb) - Derm Derm: Normal color, Warm and dry, No rash - Extremities Extremities: No deformity, No edema - Neuro Neuro: Alert and oriented X 3 - Psych Psych: Normal mood, Normal affect Results - Vitals Vitals: Vital Signs - 24 hr 10/27/21 10/27/21 10/28/21 23:23 23:27 01:18 Temperature 36.5 C 36.5 C 36.4 C L Heart Rate 69 69 70 Respiratory 16 16 17 Rate Blood Pressure 122/67 122/67 125/68 O2 Saturation 98 98 99 Oxygen O2 Source Room air - Labs Labs: Laboratory Tests 10/27/21 10/27/21 23:45 23:45 WBC 4.6 L RBC 3.92 L Hgb 11.6 L Hct 35.3 L MCV 90.1 MCH 29.6 MCHC 32.9 RDW 12.7 Plt Count 280 MPV 9.8 Neut # (Auto) 2.5 Lymph # (Auto) 1.5 Evans # (Auto) 0.4 Eos # (Auto) 0.1 Baso # (Auto) 0.0 Absolute Nucleated RBC 0.00 Nucleated RBC % 0.0 Sodium 138 Potassium 2.9 L Chloride 100 L Carbon Dioxide 26 Anion Gap 12.0 BUN 10 Creatinine 0.8 Estimated GFR (MDRD) 74 L Glucose 182 H Calcium 8.6 Total Bilirubin 1.9 H AST 263 H ALT 326 H Alkaline Phosphatase 471 H Total Protein 7.0 Albumin 3.6 Globulin 3.4 Albumin/Globulin Ratio 1.1 Lipase 56 H - Rads (name of study) CT scan of the abdomen and pelvis Radiology: Final report received, EMP read indepedently, See rad report (Negative for acute findings, other than expected postop findings in the right upper quadrant.) PD MEDICAL DECISION MAKING - ED course Complexity details: reviewed results, re-evaluated patient, considered differential, d/w patient ED course: I discussed with the patient that it sounds like she has been fairly active recently and this might be a little too much, considering she just had a major surgery. The patient also did not take any of her analgesic this morning, so to some degree it is not surprising that she had more pain by the end of the day. She has not had any trauma and has no fevers or other worrisome signs or symptoms. As far as her constipation, I have discussed with the patient that she did go under general anesthesia and had an abdominal surgery, both of which will predispose her to some constipation afterward. Additionally, she has not been eating as much as usual and has been on constipation inducing narcotics. I do not find any evidence of a bowel obstruction. The patient was worked up with laboratory studies which showed normal white blood cell count and moderately elevated LFTs across the board. These were compared with what most likely the patient's preop labs from 1125, which were normal. I did decide to send the patient for CT scan, based on her increased pain and the marked increase in her LFTs. This was done and unremarkable. I felt the patient was stable for discharge home. We have discussed home management of the symptoms, including staying on top of pain but finding the right balance for the patient between pain management and constipation medication. We have discussed a high-fiber diet, laxatives, and the usual indications for return. The patient does have a an appoint with her surgeon, Dr. Tomas Salinas, tomorrow afternoon, and she is encouraged to keep that appointment and be sure to go. Departure - Departure Disposition: Home, Self Care Clinical Impression: Post-op pain Condition: Stable Instructions: ED Post Op Pain Comments: Your labs showed some elevation in your liver enzymes since Wednesday, but your CT scan looks great. Most likely, the elevated liver enzymes are due to the surgery and the body healing from it. These will be expected to return to normal as you heal. As we discussed, it may be better for you to decrease Your activity level while you heal, until your pain has improved a little. Also, it is best not to have large gaps in your pain coverage if you are still requiring some pain medication. Otherwise, you will develop pain that becomes more severe and then will have to try to "catch up" by taking a larger dose of your pain medication. If you do not wish to take a full tablet in the morning, is better to cut the tablet in half and take just half a tablet. You may take half a tablet for each dose if you wish to cut down your pain medication a little. It is normal to have caused the patient after going under general anesthesia, and additionally, after having an abdominal surgery. Furthermore, most people have had a period of taking nothing by mouth before surgery, and often people do not eat their normal amount for the first few days afterward. Further still, you are on narcotic pain medication, which naturally slows your bowels down, creating constipation. All of these are reasons why you may not have a normal number of bowel movements for the first week or so after surgery. Focus on eating a high-fiber diet to help encourage softening of stools. You also may use a stool softener or laxative if you wish. Drink plenty of fluids. Your bowel movements will return to normal, especially once you are off the pain medication. Please continue your plans to follow-up with Dr. Salinas tomorrow for a recheck and drain removal. If you have any further concerns, you may discuss these with your surgeon at that time. Discharge Date/Time: 10/28/21 01:36
[2021-10-28 01:19] VITALS: BP 125/68
== END 2021-10-28 01:36 | disposition home or self-care (01) ==
LOC: ED 23:18
DX: G89.18 Other acute postprocedural pain (principal); R10.11 Right upper quadrant pain; R74.8 Abnormal levels of other serum enzymes; K59.00 Constipation, unspecified; Z90.49 Acquired absence of other specified parts of digestive tract; E11.9 Type 2 diabetes mellitus without complications; Z79.84 Long term (current) use of oral hypoglycemic drugs; Z79.82 Long term (current) use of aspirin
CPT/HCPCS: 36415; 74177; 80053; 83690; 85025; 96374; 99282; 99284; A9270; Q9967

== ENCOUNTER 2021-11-05 11:29 | Outpatient (CLI) | payer OTHER ==
[2021-11-05 12:46] LABS: ALBUMIN 4.7 g/dL (3.2-5.5); ALBUMIN/GLOBULIN RATIO 1.4 (1.0-2.2); BILIRUBIN,TOTAL 0.8 mg/dL (0.2-1.0); CALCIUM 9.3 mg/dL (8.5-10.3); CREATININE 0.8 mg/dL (0.4-1.0); TOTAL PROTEIN 8.1 g/dL (6.7-8.2)
== END 2021-11-05 11:30 | disposition home or self-care (01) ==
LOC: LAB 11:29
PROVIDERS: ATTEND Surgery
DX: Z90.49 Acquired absence of other specified parts of digestive tract (principal)
CPT/HCPCS: 36415; 80053

== ENCOUNTER 2022-11-07 23:14 | Emergency (ER) | payer OTHER ==
[2022-11-07 23:48] LABS: BILIRUBIN,URINE NEGATIVE (NEGATIVE); GLUCOSE, URINE (UA) NEGATIVE (NEGATIVE); KETONES,URINE (UA) NEGATIVE (NEGATIVE); LEUKOCYTE ESTERASE, URINE LARGE (NEGATIVE); NITRITE,URINE POSITIVE (NEGATIVE); OCCULT BLOOD,URINE LARGE (NEGATIVE); PROTEIN,URINE 100 mg/dL (NEGATIVE); UROBILINOGEN,URINE 0.2 (NORMAL) E.U./dL (NORMAL)
[2022-11-07 23:58] LABS: BACTERIA,URINE Moderate /HPF (None Seen); CLARITY,URINE HAZY (CLEAR); RBC,URINE TNTC /HPF (0-5); SQUAMOUS EPITHELIAL CELL,UR RARE Squamous (<= Few); WBC,URINE >25 /HPF (0-5)
[2022-11-08 00:20] VITALS: BP 155/83
--- NOTE | 2022-11-08 00:23 | ED Physician Documentation ---
PD HPI FEMALE - Stated complaint Stated Complaint: FEMALE - Chief complaint Chief Complaint: UTI - History obtained from History obtained from: Patient - History of Present Illness Timing - onset: How many days ago (2) Timing - duration: Days (2) Timing - details: Gradual onset, Still present Associated symptoms: Back pain, Dysuria, Urinary frequency. No: Fever Similar symptoms before: Diagnosis (UTIs) Review of Systems Constitutional: denies: Fever, Chills Nose: denies: Rhinorrhea / runny nose, Congestion Throat: denies: Sore throat Respiratory: denies: Cough GI: reports: Nausea : reports: Dysuria, Frequency. 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 HEENT: Other - Present Medications Home Medications: Ambulatory Orders Medication Instructions Recorded Confirmed Atorvastatin [Lipitor] 20 mg PO DAILY 11/11/16 11/08/22 lisinopriL [Lisinopril] 5 mg PO DAILY 11/11/16 11/08/22 Metformin HCl [Metformin HCl ER] 2,000 mg PO DAILY 05/18/18 11/08/22 Aspirin 81 mg PO DAILY 05/19/18 11/08/22 Omeprazole 40 mg PO DAILY 10/23/21 11/08/22 Naproxen 250 mg PO TID 5 Days #15 tablet 11/08/22 Ondansetron Odt [Zofran] 4 mg TL Q6H PRN #10 tablet 11/08/22 Phenazopyridine HCl [Pyridium] 100 mg PO TID PRN #15 tablet 11/08/22 cephALEXin [Keflex] 500 mg PO QID 7 Days #28 cap 11/08/22 - Allergies Allergies/Adverse Reactions: Allergies Allergy/AdvReac Type Severity Reaction Status Date / Time morphine Allergy Emesis Verified 11/07/22 23:23 - Social History Does the pt smoke?: No Smoking Status: Never smoker Does the pt drink ETOH?: No Does the pt have substance abuse?: No - Immunizations Immunizations are current?: Yes - POLST Patient has POLST: No PD ED PE NORMAL - Vitals Vital signs reviewed: Yes - General General: Alert and oriented X 3, No acute distress, Well developed/nourished - Cardiac Cardiac: RRR, No murmur - Respiratory Respiratory: Clear bilaterally - Abdomen Abdomen: Soft, Non tender - Female Female : Deferred - Back Back: No CVA TTP - Derm Derm: Normal color, Warm and dry - Extremities Extremities: Normal ROM s pain - Neuro Neuro: Alert and oriented X 3, No motor deficit, Normal speech Results - Vitals Vitals: Oxygen O2 Source Room air - Labs Labs: Microbiology 11/07/22 23:34 Urine Culture - Preliminary Urine,Clean Catch Escherichia Coli Laboratory Tests 11/07/22 23:34 Urine Color YELLOW Urine Clarity HAZY Urine pH 6.0 Ur Specific [place] 1.025 Urine Protein 100 H Urine Glucose (UA) NEGATIVE Urine Ketones NEGATIVE Urine Occult Blood LARGE H Urine Nitrite POSITIVE H Urine Bilirubin NEGATIVE Urine Urobilinogen 0.2 (NORMAL) Ur Leukocyte Esterase LARGE H Urine RBC TNTC H Urine WBC >25 H Ur Squamous Epith Cells RARE Squamous Urine Bacteria Moderate H Ur Microscopic Review INDICATED Urine Culture Comments INDICATED PD MEDICAL DECISION MAKING - ED course Complexity details: reviewed results, considered differential (symptoms and UA c/w cystitis. ), d/w patient Departure - Departure Disposition: 01 Home, Self Care Clinical Impression: UTI (urinary tract infection) Qualifiers: Urinary tract infection type: acute cystitis Hematuria presence: with hematuria Qualified Code(s): N30.01 - Acute cystitis with hematuria Condition: Stable Record reviewed to determine appropriate education?: Yes Instructions: ED UTI Cystitis Female Follow-Up: TIANA SHIRLEY MD [Primary Care Provider] - Prescriptions: cephALEXin [Keflex] 500 mg PO QID 7 Days #28 cap Naproxen 250 mg PO TID 5 Days #15 tablet Phenazopyridine HCl [Pyridium] 100 mg PO TID PRN #15 tablet PRN Reason: Abdominal Pain Ondansetron Odt [Zofran] 4 mg TL Q6H PRN #10 tablet PRN Reason: Nausea / Vomiting Comments: Your urine sample does look consistent with urinary tract infection and corresponds with your symptoms. We can treat this with cephalexin antibiotic 4 times daily for the next 7 days. To help with symptoms in the meanwhile, try to stay well-hydrated and we can use a combination of phenazopyridine as well as naproxen 3 times daily for the next 3 to 5 days to help with symptoms. Add Tylenol if needed for pains and ondansetron/Zofran if needed for nausea. I would anticipate improvement over the next 2 to 3 days and resolved over 3 to 5 days. Return if not improving in that timeframe or if worse in the meanwhile. I sent your prescriptions to [facility] pharmacy in [place]. Discharge Date/Time: 11/08/22 00:39
[2022-11-08] MEDS ORDERED: cephALEXin 250 MG CAPSULE PO STA (00:31)
[2022-11-08] MEDS ORDERED: PHENAZOPYRIDINE 100 MG TABLET PO STA (00:31)
[2022-11-08] MEDS ORDERED: IBUPROFEN 600 MG TABLET PO STA (00:31)
== END 2022-11-08 00:39 | disposition home or self-care (01) ==
LOC: ED 23:14
DX: N30.01 Acute cystitis with hematuria (principal); E11.9 Type 2 diabetes mellitus without complications
CPT/HCPCS: 81001; 87086; 87181; 99283; A9270; 81003

== ENCOUNTER 2024-04-12 21:23 | Outpatient (CLI) | payer OTHER ==
--- NOTE | 2024-04-13 09:18 | Ultrasound Report ---
PROCEDURE: Renal (Retroperitoneal) INDICATIONS: CYSTIC KIDNEY TECHNIQUE: Real-time scanning was performed of the retroperitoneal organs, with image documentation. COMPARISON: CT abdomen pelvis 10/28/2021, abdominal ultrasound 10/23/2021. FINDINGS: Kidneys: Kidneys are normal in size. Right kidney measures 11.1 cm long; left kidney measures 12.4 cm long. Right renal cortical thickness is 1.0 cm; left renal cortical thickness is 1.4 cm. The pat ient is status post left partial nephrectomy . There is a multiloculated cystic structure seen in the left medial superior kidney measuring 8.6 x 5.4 x 7.3 cm. In the right kidney, there is a simple bennie earing anechoic focus in the medullary region of the interpolar region measuring 1.0 x 0.8 x 1.3 cm. No nephrolithiasis or hydronephrosis. Bladder: Pre-void bladder volume is 371 mL. Post-void residual is 28 mL. Pre-void images demonstra te no intraluminal masses or stones. On pre-void images, bilateral ureteral jets are noted with colo r Doppler interrogation. (Of note, ureteral jets may not be detectable in up to 25% of cases due to insufficient differences in specific gravity between ureteral and bladder urine). Miscellaneous: No free abdominal fluid. IMPRESSION: Status post left partial nephrectomy. Left superior medial multiloculated cystic structure measuring up to 8.6 cm, not significantly increased in size when compared to prior CT 10/28/2021 when it measur ed up to 8.4 cm in maximum dimension (remeasured series 6, image 33) given differences in technique. Consider further evaluation with MRI renal protocol. Right interpolar 1.3 cm simple appearing cystic structure in the interpolar medullary region, possibl e simple cyst. Reviewed by: Alina Caldwell MD, PhD on 04/13/2024 9:17 AM PDT Approved by: Alina Caldwell MD, PhD on 04/13/2024 9:17 AM PDT Station ID: [id number]
== END 2024-04-12 21:24 | disposition home or self-care (01) ==
LOC: DI 21:23
PROVIDERS: ATTEND Nurse Practitioner Family
DX: Q61.9 Cystic kidney disease, unspecified (principal); Z90.5 Acquired absence of kidney

== ENCOUNTER 2024-12-20 10:01 | Observation (INO) ==
--- NOTE | 2024-12-20 10:36 | ED Physician Documentation ---
PD HPI UPPER EXT INJURY Stated complaint Stated Complaint: RT HAND SWELLING/POST CAT BITE Chief complaint Chief Complaint: Ext Problem History of Present Illness Location: Right and Hand Associated symptoms: Swelling and Discolored; No Weakness or Numbness Recently seen: Emergency Dept (Patient seen last night status post cat bite to the right hand with swelling and redness and some mild purulent drainage. Given IV antibiotics. Consult with orthopedics who requested the patient recheck this morning.) Treatment prior to arrival Treatment prior to arrival: IV antibiotics last night. Meds/Allgy Home Medications Ambulatory Orders Medication Instructions Recorded Confirmed lisinopril 5 mg tablet 5 mg PO DAILY 11/11/16 12/20/24 metformin 1,000 mg tablet,extended 1,000 mg PO BID 05/18/18 12/20/24 release 24hr (osmotic) aspirin 81 mg chewable tablet 81 mg PO DAILY 05/19/18 12/20/24 amoxicillin 875 mg-potassium 1 tab PO BID 7 days #14 tabs 12/18/24 12/20/24 clavulanate 125 mg tablet atorvastatin 20 mg tablet 20 mg PO QPM 12/18/24 12/20/24 dulaglutide 1.5 mg/0.5 mL 1.5 mg subcut Q7D 12/18/24 12/20/24 subcutaneous pen injector (Trulicity) Allergies Allergies Allergy/AdvReac Type Severity Reaction Status Date / Time No Known Drug Allergies Allergy Verified 12/20/24 10:14 [facility] Medical History Medical History (Updated 12/20/24 @ 10:37 by Cliff Mireles MD) Hx of simple renal cyst Hyperlipemia Renal cyst Diabetes 1.5, managed as type 2 Surgical History Surgical History History of kidney surgery Hx of cholecystectomy Social History Social History (Updated 12/20/24 @ 10:34 by Jen Reed RN) Smoking Status: Never smoker Do you dip or chew tobacco?: No Do you vape?: No Living arrangement: At home Living Condition: Alone Support Person: No Relationship: Level: Independent Do you feel safe in your home environment?: Yes Suffered physical, verbal, emotional, or financial abuse?: No History of Abuse: No ETOH Use: None Substance Use: denies use POLST Patient has POLST: No Exam Constitutional normal general appearance, no apparent distress and average body habitus Extremities Dorsum of the right hand with redness and swelling and areas of small puncture wound type abrasions. There is localized tenderness significantly. Pain with extension of the fingers. No tenderness in the forearm. Results Vitals Vitals: Vital Signs - 24 hr 12/19/24 22:40 12/20/24 10:14 12/20/24 10:57 Temperature 36.8 C Temperature Source Tympanic Pulse Rate 72 Respiratory Rate 18 Blood Pressure 148/77 H O2 Saturation 97 O2 Source Room air Room air Pain Intensity 3 7 8 12/20/24 10:57 12/20/24 11:07 Temperature Temperature Source Pulse Rate Respiratory Rate Blood Pressure O2 Saturation 97 O2 Source Pain Intensity 8 Oxygen O2 Source Room air PD Medical Decision Making ED course Complexity details: considered differential (Patient with hand infection status post cat bite. Seen in the ER last night and told to return for recheck today. Not much improved today. No systemic symptoms of fever or nausea. Pain with finger movement extension but no forearm pain or tenderness. Concern however for deeper structure involve), d/w patient and d/w product support consultant (Dr. Rodríguez from [facility] came to the ER to see the patient and will take her to the OR for opening and cleaning.) Discharge Plan Discharge Patient Disposition: ED Transfer to [facility] Condition: Stable Clinical Impression: Tenosynovitis Cat bite Qualifiers: Encounter type: initial encounter Qualified Code(s): W55.01XA - Bitten by cat, initial encounter Cellulitis Qualifiers: Site of cellulitis: extremity Site of cellulitis of extremity: upper extremity Laterality: right Qualified Code(s): L03.113 - Cellulitis of right upper limb Prescriptions: No Action lisinopril 5 MG tablet 5 mg PO DAILY Patient Comments: for kidneys metformin 1,000 MG tablet extended release 24hr 1,000 mg PO BID aspirin 81 MG tablet,chewable 81 mg PO DAILY Trulicity 1.5 mg/0.5 mL pen injector 1.5 mg subcut Q7D atorvastatin 20 mg tablet 20 mg PO QPM amoxicillin-pot clavulanate 875-125 mg tablet 1 tab PO BID 7 Days Qty: 14 0RF Print Language: Faroese Stand Alone Forms: PCP List
--- NOTE | 2024-12-20 10:39 | ED Physician Documentation ---
PD HPI WOUND RECHECK Stated complaint Stated Complaint: RT HAND SWELLING/POST CAT BITE Chief complaint Chief Complaint: Ext Problem History of Present Illness Location: Right Upper Extremity and Right Hand Meds/Allgy Home Medications Ambulatory Orders Medication Instructions Recorded Confirmed lisinopril 5 mg tablet 5 mg PO DAILY 11/11/16 12/20/24 metformin 1,000 mg tablet,extended 1,000 mg PO BID 05/18/18 12/20/24 release 24hr (osmotic) aspirin 81 mg chewable tablet 81 mg PO DAILY PRN fever or pain 05/19/18 12/20/24 atorvastatin 20 mg tablet 20 mg PO QPM 12/18/24 12/20/24 dulaglutide 1.5 mg/0.5 mL 1.5 mg subcut Q7D 12/18/24 12/20/24 subcutaneous pen injector (Trulicity) acetaminophen 650 mg 650 mg PO ONCE PRN pain 12/20/24 12/20/24 tablet,extended release (8 Hour Pain Reliever) omeprazole 20 mg capsule,delayed 20 mg PO DAILY PRN indigestion 12/20/24 12/20/24 release acetaminophen 325 mg tablet 975 mg (3 x 325 mg) PO Q8H #120 12/21/24 (Tylenol) tabs clindamycin HCl 300 mg capsule 300 mg PO TID 10 days #30 caps 12/21/24 docusate sodium 100 mg capsule 200 mg (2 x 100 mg) PO BID PRN 12/21/24 (Colace) constipation #40 caps ondansetron 4 mg disintegrating 4 mg PO Q8H PRN nausea and 12/21/24 tablet vomiting #12 tabs oxycodone 5 mg tablet 5 mg PO Q4H pain greater than 8 12/21/24 out of 10 #5 tabs sulfamethoxazole 800 1 tab PO BID 10 days #20 tabs 12/21/24 mg-trimethoprim 160 mg tablet (Bactrim DS) Allergies Allergies Allergy/AdvReac Type Severity Reaction Status Date / Time No Known Drug Allergies Allergy Verified 12/20/24 10:14 [facility] Medical History Medical History (Updated 12/20/24 @ 10:37 by Cliff Mireles MD) Hx of simple renal cyst Hyperlipemia Renal cyst Diabetes 1.5, managed as type 2 Surgical History Surgical History History of kidney surgery Hx of cholecystectomy Social History Social History (Updated 12/20/24 @ 10:34 by Jen Reed RN) Smoking Status: Never smoker Second hand tobacco smoke exposure: No Do you dip or chew tobacco?: No Do you vape?: No Living arrangement: At home Living Condition: Alone Support Person: No Relationship: Level: Independent Do you feel safe in your home environment?: Yes Suffered physical, verbal, emotional, or financial abuse?: No History of Abuse: No ETOH Use: None Substance Use: denies use POLST Patient has POLST: No Exam Constitutional normal general appearance and average body habitus Extremities dorsum right hand with redness, swelling, tednerness around several punctues c/w infected cat bites. Not tender in forearm. Results Vitals Vitals: Oxygen O2 Source Room air Labs Labs: Microbiology 12/20/24 12:07 Wound Culture - Preliminary Hand - Right 12/20/24 12:00 Wound Culture - Preliminary Hand - Right Laboratory Tests 12/20/24 12:50 POC Whole Bld Glucose 103 PD Medical Decision Making ED course Complexity details: d/w documentation consultant (Dr. Rodríguez had been consulted last night about pt and was on lookout for her. Came to ED to eval and opted to go to OR. ) Discharge Plan Discharge Patient Disposition: ED Transfer to [facility] Condition: Stable Clinical Impression: Tenosynovitis Cat bite Qualifiers: Encounter type: initial encounter Qualified Code(s): W55.01XA - Bitten by cat, initial encounter Cellulitis Qualifiers: Site of cellulitis: extremity Site of cellulitis of extremity: upper extremity Laterality: right Qualified Code(s): L03.113 - Cellulitis of right upper limb Interventions: ED Admission Assessment Last Done: 12/20/24 11:21
[2024-12-20] MEDS ORDERED: MIDAZOLAM 2 MG/2 ML VIAL ONE (10:53)
[2024-12-20] MEDS ORDERED: PROPOFOL 200 MG/20 ML VIAL IVP ONE (10:53)
[2024-12-20] MEDS ORDERED: fentaNYL 100 MCG/2 ML VIAL ONE (10:53)
[2024-12-20] MEDS: KETOROLAC 15 MG/ML VIAL IVP STA (10:57)
[2024-12-20] MEDS: HYDROmorphone 0.5 MG/0.5 ML SYRINGE IVP STA (10:57)
--- NOTE | 2024-12-20 11:07 | PREOP HISTORY & PHYSICAL ---
Surgical History & Physical Chief Complaint/HPI Chief Complaint: RIGHT Hand Cat Bite and Infection History of Present Illness: 59 LHD F presents to the ED for a second time with regards with right hand swelling, redness and pain. Her cat bit her on 12/18/24 and she started to have increased pain and swelling. SHe presented to the [facility] and she was started on Augmentin. She then presented to the ED on 12/19/24 for increased pain, redness and swelling. THey gave her IV antibiotics and she felt that she improved. She was told to follow up today for a wound check. TOday she feels the same as yesterday despite continued antibiotics. Most of her pain is on the dorsum of the hand and she has significant pain with flexion and extension of the ring and middle fingers. No purulence. No systemic symptoms. Home Meds and Allergies Active Medications Generic Name Dose Route Start Last Admin Trade Name Freq PRN Reason Stop Dose Admin Ampicillin Sodium/Sulbactam 100 mls @ 200 mls/hr 12/20/24 10:38 Sodium 1.5 gm/ Sodium Chloride IV 12/20/24 11:07 ONCE STA lisinopril 5 mg tablet 5 mg PO DAILY 11/11/16 metformin 1,000 mg tablet,extended release 24hr (osmotic) 1,000 mg PO BID 05/18/18 aspirin 81 mg chewable tablet 81 mg PO DAILY 05/19/18 amoxicillin 875 mg-potassium clavulanate 125 mg tablet 1 tab PO BID 7 days #14 tabs 12/18/24 atorvastatin 20 mg tablet 20 mg PO QPM 12/18/24 dulaglutide 1.5 mg/0.5 mL subcutaneous pen injector (Trulicity) 1.5 mg subcut Q7D 12/18/24 Allergies Allergy/AdvReac Type Severity Reaction Status Date / Time No Known Drug Allergies Allergy Verified 12/20/24 10:14 Vital Signs O2 Saturation: 97 Patient Review Patient Review Pertinent Tests Reviewed [facility] Medical History Medical History (Updated 12/20/24 @ 10:37 by Cliff Mireles MD) Hx of simple renal cyst Hyperlipemia Renal cyst Diabetes 1.5, managed as type 2 Surgical History Surgical History History of kidney surgery Hx of cholecystectomy Social History Social History (Updated 01/22/25 @ 10:34 by Jen Reed RN) Smoking Status: Never smoker Do you dip or chew tobacco?: No Do you vape?: No Living arrangement: At home Living Condition: Alone Support Person: No Relationship: Level: Independent Do you feel safe in your home environment?: Yes Suffered physical, verbal, emotional, or financial abuse?: No History of Abuse: No ETOH Use: None Substance Use: denies use POLST Patient has POLST: No Exam Exam RIGHT Hand Erythema and swelling about the dorsum of the right hand. THere is also a small area of redness on the volar aspect of the 3rd and 4th webspace. Pain with extension of the 3rd and 4th fingers. SILT in R/U/M nerve distributions Fires AIN/PIN/U nerve distributions 2+ cap refill No streaking up the arm. Assessment & Plan Assessment & Plan Assessment & Plan: Right hand infection s/p cat bite. She has continued redness, swelling and pain despite elevation and antibiotics. IT was decided that she would require a right hand I&D. THe risks, benefits and alteranatives of the procedure were discussed with the patinet to include bleeding, infection, damage to surrounding tissues, joint stiffness, repeat procedures and anesthsia risks. SHe understood and wanted to move forward with the procedure. Consent was signed. -NPO -I&D of the right hand today -IV antibiotics -Admission for continued antibiotics and immobilization John Rodríguez MD Ortho
--- NOTE | 2024-12-20 11:10 | ANESTHESIA PROCEDURE NOTE ---
Pre-Anesthesia VS, & Labs Diagnosis Surgical Diagnosis:: R hand cat bite Procedure Procedure: R hand I&D Vitals Vital Signs: Temp Pulse Resp BP Pulse Ox 36.8 C 72 18 148/77 H 97 12/20/24 10:14 12/20/24 10:14 12/20/24 10:14 12/20/24 10:14 12/20/24 11:07 NPO NPO: >8 hours Is Patient ?: No Lab Results Lab results reviewed: Yes Meds/Allgy Home Medications Ambulatory Orders Medication Instructions Recorded Confirmed lisinopril 5 mg tablet 5 mg PO DAILY 11/11/16 12/20/24 metformin 1,000 mg tablet,extended 1,000 mg PO BID 05/18/18 12/20/24 release 24hr (osmotic) aspirin 81 mg chewable tablet 81 mg PO DAILY 05/19/18 12/20/24 amoxicillin 875 mg-potassium 1 tab PO BID 7 days #14 tabs 12/18/24 12/20/24 clavulanate 125 mg tablet atorvastatin 20 mg tablet 20 mg PO QPM 12/18/24 12/20/24 dulaglutide 1.5 mg/0.5 mL 1.5 mg subcut Q7D 12/18/24 12/20/24 subcutaneous pen injector (Trulicity) Allergies Allergies Allergy/AdvReac Type Severity Reaction Status Date / Time No Known Drug Allergies Allergy Verified 12/20/24 10:14 [facility] Medical History Medical History (Updated 12/20/24 @ 10:37 by Cliff Mireles MD) Hx of simple renal cyst Hyperlipemia Renal cyst Diabetes 1.5, managed as type 2 Surgical History Surgical History History of kidney surgery Hx of cholecystectomy Social History Social History (Updated 12/20/24 @ 10:34 by Jen Reed RN) Smoking Status: Never smoker Do you dip or chew tobacco?: No Do you vape?: No Living arrangement: At home Living Condition: Alone Support Person: No Relationship: Level: Independent Do you feel safe in your home environment?: Yes Suffered physical, verbal, emotional, or financial abuse?: No History of Abuse: No ETOH Use: None Substance Use: denies use POLST Patient has POLST: No Anesthesia Exam (Expanded) Exam General: Alert, Oriented x3 and Cooperative Dental: WNL Mouth Openin Fingerbreadth Neck Mobility: Normal Mallampati classification: II Thyromental Distance: 4-6 cm Respiratory: Lungs clear and Normal breath sounds Cardiovascular: Regular rate Neurological: Normal speech Mental/Cognitive Status: Alert/Oriented X3 and Normal for patient Cognitive Status: Within normal limits Plan Plan Anesthesia Type: General (RSI, trulicity yesterday) Consent for Procedure(s) Verified and Reviewed: Yes Code Status: Attempt Resuscitation ASA Classification ASA classification: 2-Mild systemic disease Is this case an emergency?: Yes
[2024-12-20] MEDS ORDERED: BUPIVACAINE 0.25% PF 30 ML VIAL ONE (11:45)
[2024-12-20] MEDS ORDERED: SUCCINYLCHOLINE 200 MG/10 ML VIAL ONE (11:45)
--- NOTE | 2024-12-20 12:25 | OPERATIVE REPORT ---
Operative Report General Procedure Data: Operation Date: 12/20/24 11:35 Proposed Procedures p I&D Abscess, HAND(Right) - John Rodríguez MD Actual Procedures p I&D Abscess, HAND(Right) - John Rodríguez MD Anesthesia Type General Case Staff Anesthesia Provider: Yoly Chin Anesthesia Provider: Marii Li Assisting Provider: Montserrat Chatterjee Assisting Provider: Ariana Balbuena Case Times Procedure Start: 12/20/24 11:41 Time out: 12/20/24 11:40 Pre-Op Diagnosis: RIGHT Hand Infection Post Op Diagnosis: JULITA Other Other Information/Narrative: Laterality: RIGHT Preoperative diagnosis: Hand Infection Procedure performed: RIGHT Hand Incision and Drainage Postoperative diagnosis: Same Primary Surgeon: John Rodríguez MD Secondary Surgeon: Montserrat Chatterjee DO and LISA Estrada Physician Coloring Machine Operator was used throughout the entirety of the case. They assisted with room set up, patient positioning, draping, retraction, reduction, fixation and closure. They were essential for the success of the case. Anesthesia: General EBL: 10 ml Tourniquet: 0 minutes @ 250 mmHg Implants: None Indication For Surgery: Failed oral antibiotics. The risks, benefits, and alternatives were discussed. Risks include pain, bleeding, infection, damage to nearby structures and cartilage, lack of symptom relief, need for further surgery, DVT, PE, stroke, and . Written consent was obtained. Operative Findings: Minimal amount of purulence found in the puncture wound between the 3rd and 4th digits. Procedure in Detail: The patient was met in the pre-operative hold area. Consent was verified and operative extremity was signed. The patient then met with anesthesia and was brought back to the operating room. The patient was placed supine on the operating table. Anesthetic was administered. The extremity was then prepped and draped in the usual sterile fashion. A timeout was performed per protocol. All were in agreement and we proceeded. There were three areas of concern about the hand. SHe had a closed laceration over the dorsum of the hand, open puncture wound between the 3rd and 4th digits. Each of these areas were opened further with a scapel. SMall about of purulence was found in the web space between the 3rd and 4th digits. A counter incision was made over the volar aspect of the palm in line with the 3rd and 4th web space. No purulence was found here. THe disection was taken down to bone and both the ring finger and middle finger MCP joints were opened. No purulnce was found in the joints. Cultures were taken from the three sites. The wound was the copiously irrigated with 10L of sterile fluid. The skin was closed with simple 3-0 Nylon sutures loosely. A splint and sterile dressing was applied. Postoperative Plan: Admit to the floor for IV antibiotics Strict Elevation Non weight bearing of the operative extremity John Rodríguez MD
[2024-12-20] MEDS ORDERED: ACETAMINOPHEN 500 MG TABLET PO PRN (12:29)
[2024-12-20] MEDS ORDERED: oxyCODONE 5 MG TABLET PO PRN (12:29)
[2024-12-20] MEDS ORDERED: ATROPINE ABBOJECT 1 MG/10 ML SYRINGE IVP PRN (12:40)
[2024-12-20] MEDS ORDERED: NALOXONE 0.4 MG/ML VIAL IVP PRN (12:40)
[2024-12-20] MEDS ORDERED: HYDROmorphone 0.5 MG/0.5 ML SYRINGE IVP PRN (12:40)
[2024-12-20] MEDS ORDERED: MORPHINE 2 MG/ML CARPUJECT IVP PRN (12:40)
[2024-12-20] MEDS ORDERED: fentaNYL 100 MCG/2 ML VIAL IVP PRN (12:40)
[2024-12-20] MEDS ORDERED: ONDANSETRON 4 MG/2 ML VIAL IVP PRN ×2 (12:40→13:13)
[2024-12-20] MEDS ORDERED: METOCLOPRAMIDE 10 MG/2 ML VIAL IVP PRN (12:40)
[2024-12-20] MEDS ORDERED: ePHEDrine 50 MG/ML VIAL IVP PRN (12:40)
[2024-12-20] MEDS ORDERED: SODIUM CHLORIDE FLUSH 0.9% 10 ML SYRINGE IVP PRN (13:13)
[2024-12-20] MEDS: PIPERACILLIN/TAZOBACTAM 3.375 GM in SODIUM CHLORIDE 0.9% MINIBAG 100 ML IV SCH (14:10)
[2024-12-20] MEDS: NS W/20 MEQ KCL 1,000 ML IV SCH (14:11)
[2024-12-20] MEDS: AMPICILLIN/SULBACTAM 1.5 GM in SODIUM CHLORIDE 0.9% MINIBAG 100 ML IV STA (14:38)
[2024-12-20] MEDS: LACTATED RINGERS 1,000 ML IV SCH (14:39)
--- NOTE | 2024-12-20 15:20 | ANESTHESIA POST OP EVALUATION ---
Anesthesia Post Eval Post Anesthesia Eval Vitals: Last Vital Signs Temp 36.5 C 12/20/24 14:41 Pulse 71 12/20/24 14:41 Resp 20 12/20/24 14:41 BP 128/74 12/20/24 14:41 Pulse Ox 97 12/20/24 14:41 CV Function Including HR & BP: Stable Pain Control: Satisfactory Nausea & Vomiting: Negative Mental Status: Baseline Respiratory Status: Airway Patent Hydration Status: Satisfactory Anesthesia Complications: None
--- NOTE | 2024-12-20 15:34 | PHARMACY PROGRESS NOTE ---
Best Possible Medication History Admit Date and Time: 12/20/24 [id number] Home Medications Medication Instructions Recorded Confirmed Type lisinopril 5 mg tablet 5 mg PO DAILY 11/11/16 12/20/24 History metformin 1,000 mg tablet,extended 1,000 mg PO BID 05/18/18 12/20/24 History release 24hr (osmotic) aspirin 81 mg chewable tablet 81 mg PO DAILY PRN fever or pain 05/19/18 12/20/24 History amoxicillin 875 mg-potassium 1 tab PO BID 7 days #14 tabs 12/18/24 12/20/24 Rx clavulanate 125 mg tablet atorvastatin 20 mg tablet 20 mg PO QPM 12/18/24 12/20/24 History dulaglutide 1.5 mg/0.5 mL 1.5 mg subcut Q7D 12/18/24 12/20/24 History subcutaneous pen injector (Trulicity) acetaminophen 650 mg 650 mg PO ONCE PRN pain 12/20/24 12/20/24 History tablet,extended release (8 Hour Pain Reliever) omeprazole 20 mg capsule,delayed 20 mg PO DAILY PRN indigestion 12/20/24 12/20/24 History release Processed by: Pharmacy Medications reviewed in ED?: Yes Medication History completed: No Patient Interview: Completed Secondary Source(s): Pharmacy records and Insurance records [facility] Statement: As the person ultimately responsible for medication therapy, providers are able to order a medication from an existing home medication list in [facility] via the "Reconcile Routine" prior to Confirmation of that medication by technician support engineer. Such practice is discouraged except when the physician, in their clinical judgment, deems that a medical need exists for a medication without regard to previous use.
[2024-12-20] MEDS: SODIUM CHLORIDE FLUSH 0.9% 10 ML SYRINGE IVP SCH (18:26)
[2024-12-21] MEDS: ACETAMINOPHEN 325 MG TABLET PO PRN (01:06)
[2024-12-21] MEDS: oxyCODONE 5 MG TABLET PO PRN (01:09)
[2024-12-21] MEDS: ASPIRIN CHEW 81 MG TABLET PO SCH (08:19)
[2024-12-21 08:51] VITALS: TEMP 97.9
--- NOTE | 2024-12-21 08:52 | Discharge Summary ---
"Discharge Summary Admit Date: 12/20/24 Discharge Date: 12/21/24 Discharging Provider: Sree Grigsby PAC Code Status: Attempt Resuscitation DIAGNOSES Admission Diagnoses: Right hand abscess Diabetes mellitus Discharge Diagnoses with Status of Each Condition: Right hand abscess - improved status post incision and drainage of right hand with IV antibiotics Diabetes mellitus - stable HPI History of Present Illness: 59 left hand dominant female presents to the emergency department for a second time with regards with right hand swelling, redness and pain. She sustained a cat bit to her right hand on 12/18/24 and she started to have increased pain and swelling. She presented to the Walk in clinic where the wound was irrigated and washed with Hibiclens and she was started on Augmentin. She then presented to the ED on 12/19/24 for increased pain, redness and swelling. She received IV antibiotics and she felt that she improved. She was told to follow up on 12/20/24 for a wound check. Today she feels the same as yesterday despite continued antibiotics. Most of her pain is on the dorsum of the hand and she has significant pain with flexion and extension of the ring and middle fingers. No purulence. No systemic symptoms. TDAP vaccine updated at walk in clinic 12/18/24. CONSULTS | PROCEDURES Procedures: Irrigation and debridement right hand - Dr Rodríguez on 12/20/24 Intra-operative cultures obtained. At discharge 2 aerobic cultures showed no micro-organism growth after 1 day. All other cultures are pending. HOSPITAL COURSE Hospital Course: 59 year old female underwent an uncomplicated irrigation and debridement of the right hand with Dr Rodríguez on 12/20/24. There were no known immediate post operative complications. She was immobilized in a short arm volar splint with plaster and placed on strict elevation protocols. She was placed in observation status on the medical surgical floor and recevied IV Zosyn every [address] operative day 1 the dressing and splint were removed which showed decreased swelling and erythema and her pain had improved. She was evaluated by Dr Rodríguez, Orthopedic surgeon, and myself. Her vital signs were stable and her pain was controlled on oral analgesics. She was discharged home on post operative day 1. Home antibiotic regiment was Bactrim double strength BID and Clindamycin 300 mg TID for 10 days. An out patient follow up appointment was scheduled for Wednesday12/25/24 at [facility]. ALLERGIES Allergies Allergy/AdvReac Type Severity Reaction Status Date / Time No Known Drug Allergies Allergy Verified 12/20/24 10:14 MEDICATIONS Ambulatory Orders Medication Instructions Recorded Confirmed lisinopril 5 mg tablet 5 mg PO DAILY 11/11/16 12/20/24 metformin 1,000 mg tablet,extended 1,000 mg PO BID 05/18/18 12/20/24 release 24hr (osmotic) aspirin 81 mg chewable tablet 81 mg PO DAILY PRN fever or pain 05/19/18 12/20/24 atorvastatin 20 mg tablet 20 mg PO QPM 12/18/24 12/20/24 dulaglutide 1.5 mg/0.5 mL 1.5 mg subcut Q7D 12/18/24 12/20/24 subcutaneous pen injector (Trulicity) acetaminophen 650 mg 650 mg PO ONCE PRN pain 12/20/24 12/20/24 tablet,extended release (8 Hour Pain Reliever) omeprazole 20 mg capsule,delayed 20 mg PO DAILY PRN indigestion 12/20/24 12/20/24 release acetaminophen 325 mg tablet 975 mg (3 x 325 mg) PO Q8H #120 12/21/24 (Tylenol) tabs clindamycin HCl 300 mg capsule 300 mg PO TID 10 days #30 caps 12/21/24 docusate sodium 100 mg capsule 200 mg (2 x 100 mg) PO BID PRN 12/21/24 (Colace) constipation #40 caps ondansetron 4 mg disintegrating 4 mg PO Q8H PRN nausea and 12/21/24 tablet vomiting #12 tabs oxycodone 5 mg tablet 5 mg PO Q4H pain greater than 8 12/21/24 out of 10 #5 tabs sulfamethoxazole 800 1 tab PO BID 10 days #20 tabs 12/21/24 mg-trimethoprim 160 mg tablet (Bactrim DS) PHYSICAL EXAM AT DISCHARGE Physical Exam Other/Comments: well developed, well nourished, 59 year old female, no acute distress 3 well approximated incisions with nylon sutures in place. Decreased erythema and effusion about the right hand Active extension of the thumb, index finger, ring finger and little finger demonstrated. Patient is unable to actively extend the right middle finger. Non tender about the flexor tendons of the right hand. No pain with passive extension of the right middle digit. No fusiform swelling about the right hand digits. Right middle digit rests in slight flexion. Neurovascular intact to right upper extremity FOLLOW UP Follow Up: Dr Rodríguez at [facility] on 12/25/24 TIME SPENT Time Spent in Discharge (Minutes): 30 Discharge Plan Discharge Patient Disposition: 01 Home, Self Care Condition: Stable Medically Cleared Date:: 12/21/24 Medically Cleared Comments:: Discharge home after IV antibiotics at 12pm on 12/21/24. Prescriptions: Continued lisinopril 5 MG tablet 5 mg PO DAILY Patient Comments: for kidneys metformin 1,000 MG tablet extended release 24hr 1,000 mg PO BID aspirin 81 MG tablet,chewable 81 mg PO DAILY PRN (Reason: fever or pain) omeprazole 20 mg capsule,delayed release(DR/EC) 20 mg PO DAILY PRN (Reason: indigestion) acetaminophen [8 Hour Pain Reliever] 650 mg tablet extended release 650 mg PO ONCE PRN (Reason: pain) Trulicity 1.5 mg/0.5 mL pen injector 1.5 mg subcut Q7D atorvastatin 20 mg tablet 20 mg PO QPM Discontinued amoxicillin-pot clavulanate 875-125 mg tablet 1 tab PO BID 7 Days Qty: 14 0RF No Action acetaminophen [Tylenol] 325 mg tablet 975 mg PO Q8H Qty: 120 0RF oxycodone 5 mg tablet 5 mg PO Q4H Qty: 5 0RF docusate sodium [Colace] 100 mg capsule 200 mg PO BID PRN (Reason: constipation) Qty: 40 0RF ondansetron 4 mg tablet,disintegrating 4 mg PO Q8H PRN (Reason: nausea and vomiting) Qty: 12 0RF clindamycin HCl 300 mg capsule 300 mg PO TID 10 Days Qty: 30 0RF sulfamethoxazole-trimethoprim [Bactrim DS] 800-160 mg tablet 1 tab PO BID 10 Days Qty: 20 0RF Activity Restrictions/Additional Instructions: You underwent a right hand irrigation and debridement at [facility] on 12/20/[address] Rodríguez after you sustained a cat bite to the right hand. ACTIVITY INSTRUCTIONS - You are nonweightbearing to the right hand. We encourage active movement of the fingers every hour while awake to prevent stiffness. - You must be cleared by your orthopedic provider before operating a vehicle. - Follow up with the orthopedic clinic in 5 days. Call our office at [phone] with any concerns DRESSING CARE - You have a bulk dressing that is secured with an Franck bandage. Leave the dressing in place until your follow up in the orthopedic clinic. - Keep extremity elevated to at least the level of the heart to reduce swelling. You can use ice on top of the splint to reduce pain and swelling of the extremity. - If you notice fever, chills, redness, excessive drainage or bleeding, a sharp increase in pain that persists after taking pain medication, pain in your calf muscles, chest pain or trouble breathing please unwrap the dressing and investigate. Then call the office with findings for further guidance. If it is after regular clinic hours, please seek care in the emergency department. If you notice severe chest pain and trouble breathing, seek immediate care, do not delay for a call to the clinic. - If you need to take a shower cover the dressing in a garbage bag and secure it to keep the dressing dry and intact. POST-OPERATIVE INSTRUCTIONS - Resume your normal diet. - If nausea or vomiting occurs, don't eat or drink anything for one hour. Then start drinking small amounts of clear liquids. Later, add crackers, gradually building up to your usual diet. MEDICATIONS - Take three pills of 325 mg Tylenol (acetaminophen) every 8 hours r egardless of pain in a scheduled manner. Do not exceed 3000 mg of Tylenol (from ALL sources, including over the counter combination products) in a 24-hour period due to risk of liver injury. - Take one pill of 5 mg oxycodone by mouth every 6 hours as needed for break through pain stronger than 7 out of 10 on a pain scale. Do not exceed 4 tablets in a 24-hour period. - Take 200 mg of Colace by mouth every 12 hours for constipation. Oxycodone may increase your risk of constipation. - Take 4 mg of Zofran by mouth every 6 hours as needed for uncontrolled nausea or vomiting. - Take clindamycin 300 mg every 8 hours for 10 days after your cat bite. This is an antibiotic. Take the entire prescription of this medication, do not stop taking the medication early. - Take Bactrim 1 double strength tablet every 12 hours for 10 days after your cat bite. This is an antibiotic. Take the entire prescription of this medication, do not stop taking the medication early. - Resume all ofyour normal home medications tomorrow morning. Diet: Regular Interventions: Belongings Inventory Last Done: 12/20/24 14:00 Health Concerns: You were taken to the operating room for irrigation and debridment of your right hand after a cat bite. You received antibiotics via an IV during your hospital stay. Your redness and swelling improved and you were discharged with oral antibiotics to take at home. Care Plan Goals: Return to prior level of function without infection Assessment: The above instructions were discussed with the patient. Written instructions were provided as a reminder. Plan of Treatment: Irrigation and debridement in the operating room with Dr Rodríguez IV antibiotics in the hospital Oral clindamycin and Bactrim at home for 10 days Follow up with Orthopedics on 12/25/24 for wound check Print Language: Tajik Patient Instructions: Surgery Anesthesia After Stand Alone Forms: PCP List Follow-up Care: John Rodríguez MD [Provider Admit Priv/Credential] -"
[2024-12-21 12:37] VITALS: BP 105/67; O2SAT 98
== END 2024-12-21 13:35 | disposition home or self-care (01) ==
LOC: ED 10:01 → MS2 11:07 → SDS 11:07 → MS2 12:56
PROVIDERS: ADMIT Physician Assistant Surgical; ATTEND Orthopaedic Surgery